=== PATIENT | female | born 1980 | race Caucasian/White ===

== ENCOUNTER 2023-08-04 01:16 | Emergency (ER) | payer MEDICAID ==
[~2023-08-04] VITALS: Ht 165.1 cm; Wt 64.0 kg
[2023-08-04 01:27] VITALS: O2SAT 100
[2023-08-04 02:13] LABS: CLARITY URINE CLOUDY (CLEAR); COLOR URINE DARK YELLOW (YELLOW); GLUCOSE URINE NEGATIVE (NEGATIVE); KETONES URINE TRACE (NEGATIVE); LEUKOCYTE ESTERASE URINE 2+ (NEGATIVE); NITRITE URINE NEGATIVE (NEGATIVE); OCCULT BLOOD URINE 1+ (NEGATIVE); PH URINE 5.5 (4.5-8.0); PROTEIN URINE TRACE (NEGATIVE); SPECIFIC GRAVITY URINE 1.028 (1.005-1.030)
[2023-08-04 02:20] LABS: *AMPHETAMINES SCREEN URINE PRESUMPTIVE POSITIVE (NEGATIVE); *BARBITURATES SCREEN URINE NEGATIVE (NEGATIVE); *BENZODIAZEPINES SCREEN URINE NEGATIVE (NEGATIVE); *COCAINE SCREEN URINE NEGATIVE (NEGATIVE); METHADONE URINE SCREEN NEGATIVE (NEGATIVE); OPIATES URINE SCREEN NEGATIVE (NEGATIVE)
[2023-08-04 02:21] LABS: CANNABINOID URINE SCREEN PRESUMPTIVE POSITIVE (NEGATIVE); ECSTASY MDMA SCREEN URINE CONF.TEST INDICATED (NEGATIVE); PHENCYCLIDINE URINE SCREEN NEGATIVE (NEGATIVE)
[2023-08-04 02:28] LABS: SQUAMOUS EPITHELIAL CELL URINE 1+ /lpf (RARE/1+); WBC URINE TNTC /hpf (0-2)
[2023-08-04 02:29] LABS: BACTERIA URINE 2+
[2023-08-04 02:48] LABS: BASOPHILS % 0.7 % (0.0-2.0); HEMATOCRIT. 41.5 % (36.0-48.0); HEMOGLOBIN. 14.1 g/dL (12.0-16.0); LYMPHOCYTES % 30.3 % (20.0-50.0); MEAN CORPUSCULAR HEMOGLOBIN 30.4 pg (28.0-32.0); MEAN CORPUSCULAR VOLUME 89.3 fL (81.0-99.0); MEAN PLATELET VOLUME 7.8 fl (7.4-10.4); MONOCYTES % 7.5 % (2.0-8.0); NEUTROPHILS % 56.5 % (40.0-76.0); PLATELET 327 x1000/uL (130-400); RED BLOOD CELL COUNT 4.65 mill/uL (4.2-5.4); RED CELL DISTRIBUTION WIDTH 13.3 % (11.6-14.6); WHITE BLOOD COUNT 10.7 x1000/uL (4.5-11.0)
[2023-08-04 02:57] LABS: CHLORIDE 107 mEq/L (98-107); POTASSIUM 3.5 mEq/L (3.5-5.1); SODIUM 138 mEq/L (136-145)
[2023-08-04 02:58] LABS: CARBON DIOXIDE 23 mEq/L (21-32)
[2023-08-04 02:59] LABS: CALCIUM 9.3 mg/dL (8.7-10.4)
[2023-08-04 03:03] LABS: CREATININE 1.3 mg/dL (0.6-1.0); GLUCOSE 95 mg/dL (70-105); HCG SCREEN NEGATIVE; UREA NITROGEN BLOOD 13 mg/dL (9-23)
[2023-08-04 03:05] LABS: ACETAMINOPHEN < 2 ug/mL (10-30)
[2023-08-04 03:07] LABS: ETHANOL BLOOD < 10 mg/dL (<10)
[2023-08-04 14:44] VITALS: BP 118/65; PULSE 65; RESP 16; TEMP 98.2
== END 2023-08-04 15:07 ==
LOC: ER 01:26
DX: R45.851 Suicidal ideations (principal); R51.9 Headache, unspecified; R68.84 Jaw pain
CPT/HCPCS: 36415; 80048; 80305; 80307; 80320; 80329; 81003; 84703; 85025; 87077; 87186; 99285; G0480